=== PATIENT | male | born 1995 | race Caucasian/White ===

== ENCOUNTER 2017-01-27 10:32 | Outpatient (CLI) | payer BC, OTHER ==
--- NOTE | 2017-01-27 15:36 | MRI ---
MRI RIGHT ANKLE WITHOUT CONTRAST: 01/27/17 HISTORY: Two weeks ago twisted right ankle going up stairs. No previous. Skin graft. COMPARISON: None. FINDINGS: LIGAMENTS: AITFL and PITFL are intact. The ATFL was chronically torn. The CFL is thickened. The superficial and deep deltoid are intact. BONES: There is osteochondral defects of the posteromedial talar dome. There is depression of the articular surface, 2-3 mm. overall this osteochondral defect measures 11 mm in AP dimension x approximately 3 mm in transverse dimension. TENDONS: Extensor, flexor and peroneal tendons are normal. Achilles tendon is normal. SOFT TISSUES: Moderate joint effusion of the tibiotalar joint. IMPRESSION: 1. Talar dome osteochondral defect measuring 11 x 3 mm (AP x transverse). There is articular st ep-off measuring 2-3 mm with impaction of the cortex to the trabecula. There is no significant free fluid undercutting the anterior surface of this osteochondral defect with trace fluid undercutting t he posterior surface. Overlying cartilage is frayed. 2. Tear of the ATFL. CFL is thickened and likely chronically torn. POS: [facility]
== END 2017-01-27 10:33 | disposition home or self-care (01) ==
LOC: SCSMRI 10:32
PROVIDERS: ATTEND Orthopaedic Surgery
DX: M25.571 Pain in right ankle and joints of right foot (principal)